=== PATIENT | male | born 1995 | race Caucasian/White ===

== ENCOUNTER 2024-01-25 14:15 | Emergency (ER) | payer SELFPAY ==
--- NOTE | 2024-01-25 14:17 | ED.ANXIETY ---
HPI - Anxiety General Chief Complaint: Anxiety Stated Complaint: Anxiety Meds Time Seen by Provider: 01/25/24 14:30 Mode of arrival: ambulatory Limitations: no limitations History of Present Illness HPI narrative: 28 year old male presents with concern for ADHD medication. He reports he is seeing a counselor they suggested he be seen here to be evaluated for psychiatric medication surgeon's ADHD. He denies thoughts of hurting himself or others. He reports ?intrusive thoughts?. Denies current anxiety MD complaint: other (request for ADHD medication) Related Data Home Medications Medication Instructions Recorded Confirmed No Home Medications 01/25/24 01/25/24 Allergies Allergy/AdvReac Type Severity Reaction Status Date / Time Penicillins Allergy Unknown Hives Verified 01/25/24 14:17 Review of Systems Review of Systems: CONSTITUTIONAL: Denies malaise, chills, sweats, or fever. NEUROLOGIC: Denies numbness, weakness, or headache. 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 There is no relevant family history pertinent to the presenting complaint Exam Narrative: GENERAL: Well-appearing, well-nourished, and in no acute distress. HEAD: Normocephalic, atraumatic. EYES: PERRLA, sclera clear, and EOMI ENT: Nares clear. Mucous membranes moist. NECK: Supple. CHEST: No respiratory distress. Speaks in full sentences. HEART: Regular rate and rhythm. SKIN: Warm, dry, no visible rash. NEURO: Alert and oriented x3. PSYCH: Normal mood and affect Course Course Emergency Course: Patient was given information for resources for primary care and for [facility]. Anticipatory guidance given. Patient agrees to follow-up as directed and is aware of reasons to seek care at the emergency department. Portions of this record may have been created with voice recognition software Level of Care: Express Care Visit Vital Signs Vital signs: Reviewed. MDM - Anxiety MDM Narrative Medical decision making narrative: I evaluated this patient in the express care. History is obtained from patient who is an independent historian and physical exam was performed.? Available medical records were reviewed. ? Exam findings and relevant testing show no acute concerns or changes; patient is non-toxic appearing and is in no distress. ? Patient is appropriate for outpatient treatment and follow-up. Critical Care Time Critical Care Time Critical Care Time: No Discharge Plan Discharge Clinical Impression: History of attention deficit disorder Patient Disposition: Home, Self-Care Condition: Stable Instructions: General Patient Instructions Additional Instructions: Please call to find resources on primary care and psychiatric care. If you have any urgent concerns, thoughts of hurting herself or others you should go to the emergency room. Prescriptions: No Action metformin 1,000 mg tablet 1,000 mg PO BID Qty: 180 3RF Rx Instructions: Please disregard previously sent script for the Metformin
[2024-01-25 14:23] VITALS: BP 134/74; PULSE 85; RESP 16; TEMP 37.3; O2SAT 98
== END 2024-01-25 14:45 | disposition home or self-care (01) ==
PROVIDERS: Emergency Provider Nurse Practitioner
DX: F90.9 Attention-deficit hyperactivity disorder, unspecified type (principal); E78.5 Hyperlipidemia, unspecified
CPT/HCPCS: 99211; G0463

== ENCOUNTER 2025-06-24 23:26 | Emergency (ER) | payer SELFPAY ==
--- NOTE | ~2025-06-24 | CT_ITS ---
EXAMINATION: CTA brain carotid DATE: 06/24/2025 23:52 INDICATION: Headache. Left facial pain. TECHNIQUE: Computed tomographic angiography (CTA) of the head was performed with 100 mL Omnipaque-350 intravenous contrast. CTA of the neck was performed with intravenous contrast. Automated exposure control and iterative reconstruction technique were employed. The dose-length product was 1186.64 mGy-cm. Maximum intensity projection and volume rendered 3D-reconstructions were created by the technologist on a separate workstation. COMPARISON: Head CT 06/24/2025 FINDINGS: HEAD CTA: There is no intracranial hemorrhage, acute infarction, or abnormal intracranial mass lesion. The ventricles are normal in size. There is mild mucosal thickening in the paranasal sinuses. The orbits are normal. The mastoid air cells are normal. The vertebral arteries are codominant. There is no significant stenosis of basilar artery or the posterior cerebral arteries. There is no significant stenosis of the intracranial internal carotid arteries or anterior or middle cerebral arteries. Anterior communicating artery is normal. The posterior communicating arteries are normal. There is no aneurysm. NECK CTA: There is mild bilateral high internal jugular chain lymphadenopathy, likely reactive. There is no significant stenosis of the vertebral arteries. There is no visible plaque in the proximal internal carotid arteries. There is 0% stenosis of the proximal right internal carotid artery relative to normal distal artery lumen diameter (NASCET criteria). There is 0% stenosis of the proximal left internal carotid artery relative to normal distal artery lumen diameter. There is mild cervical spondylosis. IMPRESSION: 1. Normal brain. 2. No aneurysm or significant intracranial arterial stenosis. 3. 0% stenosis of the proximal internal carotid arteries relative to normal distal artery lumen diameters (NASCET criteria). 4. Mild bilateral high internal jugular chain lymphadenopathy, likely reactive. Reviewed, dictated and finalized at location E. EE MAKER SERVICER IMPRESSION: 1. Normal brain. 2. No aneurysm or significant intracranial arterial stenosis. 3. 0% stenosis of the proximal internal carotid arteries relative to normal dis best artery lumen diameters (NASCET criteria). 4. Mild bilateral high internal jugular chain lymphadenopathy, likely reactive.
--- NOTE | ~2025-06-24 | CT_ITS ---
EXAMINATION: CT brain wo con DATE: 06/24/2025 23:52 INDICATION: Headache. Left-sided facial pain. TECHNIQUE: Computed tomography (CT) of the head was performed without intravenous contrast. The mA was adjusted according to patient size. Iterative reconstruction technique was employed. The dose-length product was 832.33 mGy-cm. COMPARISON: None FINDINGS: There is no intracranial hemorrhage, acute infarction, or abnormal intracranial mass lesion. The ventricles are normal in size. There is mild mucosal thickening in the paranasal sinuses. The mastoid air cells are normal. The orbits are normal. IMPRESSION: 1. Normal brain. Reviewed, dictated and finalized at location E. OPATHOLOGY TECHNICIAN IMPRESSION: 1. Normal brain.
--- NOTE | ~2025-06-24 | XR_ITS ---
Examination: XR chest 1V portable Clinical History: R/o CVA Comparison: None Technique: Portable AP Findings: Heart size upper limit of normal. Lungs clear. No acute bony abnormality. IMPRESSION: 1. No acute cardiopulmonary findings given portable technique. Reviewed, dictated and finalized at location R. TENDER
[2025-06-24 23:49] LABS: Estimated Glomerular Filt Rate > 60
[2025-06-24 23:55] VITALS: BP 138/83; PULSE 88; RESP 14; RESP 20; O2SAT 97; O2SAT 98
[2025-06-25] VITALS: BP 141/92; PULSE 83; RESP 18; O2SAT 96
[2025-06-25] MEDS: PROCHLORPERAZINE EDISYLATE 10 MG/2 ML VIAL IV PUSH
--- NOTE | 2025-06-25 | ECG_ITS ---
Test Date: 2025-06-25 01:21:11 Measurements Intervals [place] Rate: 85 P: 56 FL: 175 QRS: 17 QRSD: 104 T: 21 QT: 352 QTc: 419 Interpretive Statements SINUS RHYTHM INCOMPLETE RIGHT BUNDLE BRANCH BLOCK BORDERLINE ECG No previous ECG available for comparison Electronically Signed On 06-25-2025 07:51:10 CONSUMER SAFETY INSPECTOR by Wu Padilla D.O.
[2025-06-25] MEDS: SODIUM CHLORIDE 0.9% IV 1,000 ML 999 ML IV CONT (00:01)
[2025-06-25 00:17] LABS: Hematocrit 41.4 % (42.0-52.0); Hemoglobin 14.1 g/dL (14.0-18.0); Immature Granulocyte Percent A 0.4 % (0-0.5); Lymphocytes Absolute Auto 3.55 K/mm3 (0.9-3.2); Mean Corpuscular HGB Conc 34.1 g/dl (32-36); Mean Corpuscular Hemoglobin 29.8 pg (26-34); Mean Corpuscular Volume 87.5 fl (80-100); Nucleated Red Blood Cells Absolute Auto 0.000 K/mm3 (0.0-0.012); Nucleated Red Blood Cells Perc 0.0 % (0.0-0.2); Platelet Count Result 278 k/mm3 (150-375); Red Blood Count 4.73 M/mm3 (4.6-6.20); White Blood Count 11.3 K/mm3 (4.5-10.0)
--- NOTE | 2025-06-25 00:18 | ED_ITS ---
HPI - General Adult General Chief complaint: Unspecified Stated complaint: vision changes Time Seen by Provider: 06/24/25 23:37 History of Present Illness HPI narrative: Patient 30-year-old gentleman presents emergency department chief complaint of headache and left sided blurry vision. Patient reports that today started having headache reports that this he took some NyQuil and about 30 minutes later started having some blurry vision left eye patient reports that the med is doing better at this point is not 100% resolved. The patient reports that he has had no prior history migraines reports no weakness in arms or legs. The patient reports no change in speech. Related Data Allergies Allergy/AdvReac Type Severity Reaction Status Date / Time Penicillins Allergy Unknown Hives Verified 02/02/24 14:06 Review of Systems 2 Review of Systems: A 10 system review of systems was completed on the patient and is negative except for what is stated in the HPI. Nursing and ancillary documentation was reviewed. 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 Body mass index (BMI) 40.0-44.9, adult Encounter for preventive health examination FHx: type 2 diabetes mellitus Vitamin D deficiency Insulin resistance Insomnia OCD (obsessive compulsive disorder) History of attention deficit disorder Family History Family History Mother Diabetes mellitus Father Hypertension Social History Social History Smoking status: Never smoker Alcohol intake: never Substance use: never Substance use type: does not use Occupation/Education: occupation 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 HEAD: Normocephalic, atraumatic. EYES: PERRLA and EOMI. ENT: Nares clear, no rhinorrhea or epistaxis. Mucous membranes moist. NECK: Supple. CHEST: Clear to auscultation. No respiratory distress. HEART: Regular rate and rhythm. No murmur heard. Normal peripheral pulses. ABDOMEN: Soft, nontender, nondistended, normal active bowel sounds. EXTREMITIES: Normal range of motion. No edema. SKIN: Warm, dry, no rash. NEURO: No focal deficits. Alert and oriented x3. 5/5 strength in all extremities no paralysis no slurred speech PSYCH: Normal mood and affect. Course Vital Signs Vital signs: Vital Signs Pulse Rate 88 06/24/25 23:55 Respiratory Rate 20 06/24/25 23:55 Blood Pressure 138/83 06/24/25 23:55 Pulse Oximetry 98 06/24/25 23:55 Pulse Rate 90 06/25/25 01:32 Respiratory Rate 20 06/25/25 01:32 Blood Pressure 126/75 06/25/25 01:32 Pulse Oximetry 95 06/25/25 01:32 Medical Decision Making MDM Narrative Medical decision making narrative: Differential diagnosis includes complex migraine, CVA, large vessel occlusion, The patient due to his headache being onset of greater than 4 hours is not a thrombolytics candidate CT head which showed no acute abnormality CTA head and neck showed no acute findings no aneurysm no evidence of large vessel occlusion Laboratory studies were obtained that showed a white count of 11.3 electrolytes are within normal limits troponin was negative tox was negative The patient was given a migraine cocktail and symptoms have completely resolved Vital Signs Vital Signs: Vital Signs Pulse Rate 88 06/24/25 23:55 Respiratory Rate 20 06/24/25 23:55 Blood Pressure 138/83 06/24/25 23:55 Pulse Oximetry 98 06/24/25 23:55 Pulse Rate 90 06/25/25 01:32 Respiratory Rate 20 06/25/25 01:32 Blood Pressure 126/75 06/25/25 01:32 Pulse Oximetry 95 06/25/25 01:32 Lab Data 06/25/25 00:07 06/25/25 00:07 Labs: Lab Results 06/24/25 06/24/25 06/25/25 Range/Units 23:33 23:46 00:07 WBC 11.3 H (4.5-10.0) K/mm3 RBC 4.73 (4.6-6.20) M/mm3 Hgb 14.1 (14.0-18.0) g/dL Hct 41.4 L (42.0-52.0) % MCV 87.5 (80-100) fl MCH 29.8 (26-34) pg MCHC 34.1 (32-36) g/dl RDW 12.6 (11.5-14.5) % Plt Count 278 (150-375) k/mm3 MPV 9.8 (7.4-10.4) fl Immature Gran % (Auto) 0.4 (0-0.5) % Neut % (Auto) 56.4 (45.5-73.1) % Lymph % (Auto) 31.4 (18.3-44.2) % [place] % (Auto) 7.9 (2.6-8.5) % Eos % (Auto) 3.2 (0-4.4) % Baso % (Auto) 0.7 (0.2-1.2) % Lymph # (Auto) 3.55 H (0.9-3.2) K/mm3 [place] # (Auto) 0.9 H (0.1-0.6) K/mm3 Eos # (Auto) 0.4 H (0-0.3) K/mm3 Baso # (Auto) 0.1 (0.0-0.1) K/mm3 Abs Immat Gran (auto) 0.05 H (0.00-0.031) K/mm3 Absolute Neuts (auto) 6.4 (1.3-6.7) K/mm3 Absolute Nucleated RBC 0.000 (0.0-0.012) K/mm3 Nucleated RBC % 0.0 (0.0-0.2) % PT 14.2 (11.1-14.7) Seconds INR 1.1 APTT 27.9 (22.3-36.8) Seconds Sodium 138 (137-145) mmol/L Potassium 4.2 (3.4-5.0) mmol/L Chloride 105 (98-107) mmol/L Carbon Dioxide 29 (22-30) mmol/L Anion Gap 4 (4-12) mmol/L BUN 23 H (9-20) mg/dL Creatinine 1.10 0.87 (0.8-1.5) mg/dL Estim Creat Clear Calc Not Reportable 150 Estimated GFR > 60 > 60 (59 - ) Glucose 93 (65-110) mg/dL POC Capillary Glucose 102 (65-105) mg/dl Lactic Acid 1.0 (0.7-2.0) mmol/L Calcium 9.5 (8.4-10.2) mg/dL Magnesium Cancelled Total Bilirubin (0.2-1.3) mg/dL AST (17-59) U/L ALT (6-50) U/L Alkaline Phosphatase (38-126) U/L Troponin I (0.000-0.034) ng/mL Total Protein (6.3-8.2) g/dL Albumin (3.5-5.1) g/dL Lipase Urine Color (Yellow) Urine Appearance (Clear) Urine pH (5.0-9.0) Ur Specific [place] (1.001-1.035) Urine Protein (Negative) mg/dL Urine Glucose (UA) (Negative) mg/dL Urine Ketones (Negative) mg/dL Ur Blood (Man) (Negative) Urine Nitrate (Negative) Urine Bilirubin (Negative) Urine Urobilinogen (<2.0) mg/dL Leukocyte Esterase Rfl (Negative) GILBERT/UL Urine Opiates Screen (Negative) Urine Methadone Screen (Negative) Ur Barbiturates Screen (Negative) Ur Phencyclidine Scrn (Negative) Ur Amphetamine Screen (Negative) U Benzodiazepines Scrn (Negative) Urine Cocaine Screen (Negative) U Cannabinoids Screen (Negative) Ethyl Alcohol (<10) mg/dL 06/25/25 06/25/25 06/25/25 Range/Units 00:07 00:07 00:51 WBC (4.5-10.0) K/mm3 RBC (4.6-6.20) M/mm3 Hgb (14.0-18.0) g/dL Hct (42.0-52.0) % MCV (80-100) fl MCH (26-34) pg MCHC (32-36) g/dl RDW (11.5-14.5) % Plt Count (150-375) k/mm3 MPV (7.4-10.4) fl Immature Gran % (Auto) (0-0.5) % Neut % (Auto) (45.5-73.1) % Lymph % (Auto) (18.3-44.2) % [place] % (Auto) (2.6-8.5) % Eos % (Auto) (0-4.4) % Baso % (Auto) (0.2-1.2) % Lymph # (Auto) (0.9-3.2) K/mm3 [place] # (Auto) (0.1-0.6) K/mm3 Eos # (Auto) (0-0.3) K/mm3 Baso # (Auto) (0.0-0.1) K/mm3 Abs Immat Gran (auto) (0.00-0.031) K/mm3 Absolute Neuts (auto) (1.3-6.7) K/mm3 Absolute Nucleated RBC (0.0-0.012) K/mm3 Nucleated RBC % (0.0-0.2) % PT (11.1-14.7) Seconds INR APTT (22.3-36.8) Seconds Sodium (137-145) mmol/L Potassium (3.4-5.0) mmol/L Chloride (98-107) mmol/L Carbon Dioxide (22-30) mmol/L Anion Gap (4-12) mmol/L BUN (9-20) mg/dL Creatinine (0.8-1.5) mg/dL Estim Creat Clear Calc Estimated GFR (59 - ) Glucose (65-110) mg/dL POC Capillary Glucose (65-105) mg/dl Lactic Acid (0.7-2.0) mmol/L Calcium (8.4-10.2) mg/dL Magnesium 1.9 Total Bilirubin 0.3 (0.2-1.3) mg/dL AST 45 (17-59) U/L ALT 70 H (6-50) U/L Alkaline Phosphatase 74 (38-126) U/L Troponin I < 0.012 (0.000-0.034) ng/mL Total Protein 7.9 (6.3-8.2) g/dL Albumin 4.3 (3.5-5.1) g/dL Lipase Cancelled 115 Urine Color Yellow (Yellow) Urine Appearance Clear (Clear) Urine pH 5.5 (5.0-9.0) Ur Specific [place] 1.030 (1.001-1.035) Urine Protein Trace (Negative) mg/dL Urine Glucose (UA) Negative (Negative) mg/dL Urine Ketones Negative (Negative) mg/dL Ur Blood (Man) Negative (Negative) Urine Nitrate Negative (Negative) Urine Bilirubin Negative (Negative) Urine Urobilinogen 0.2 (<2.0) mg/dL Leukocyte Esterase Rfl Negative (Negative) GILBERT/UL Urine Opiates Screen Negative (Negative) Urine Methadone Screen Negative (Negative) Ur Barbiturates Screen Negative (Negative) Ur Phencyclidine Scrn Negative (Negative) Ur Amphetamine Screen Negative (Negative) U Benzodiazepines Scrn Negative (Negative) Urine Cocaine Screen Negative (Negative) U Cannabinoids Screen Negative (Negative) Ethyl Alcohol < 10 (<10) mg/dL Discharge Plan Discharge Clinical Impression: Ocular migraine Patient Disposition: Home Condition: Stable Instructions: Antibiotic Form, Migraine Headache (ED), Acute Headache (ED) Patient Language: Ethiopian Prescriptions: No Action sertraline 50 mg tablet 50 mg PO DAILY Qty: 30 0RF Rx Instructions: 1/2 tab nightly x4 nights then 1 nightly hydroxyzine HCl 25 mg tablet 25 mg PO TID PRN (Reason: anxiety and insomnia) Qty: 30 0RF Follow-up/Referrals: Jabier Santos MD [Physician, Family Practice] Maria Larios APRN [Advanced Practice Nurse, [facility]] Time of Disposition: 02:56
[2025-06-25 00:33] LABS: Alanine Aminotransferase 70 U/L (6-50); Albumin Level 4.3 g/dL (3.5-5.1); Alkaline Phosphatase 74 U/L (38-126); Anion Gap 4 mmol/L (4-12); Aspartate Amino Transferase 45 U/L (17-59); Bilirubin,Total 0.3 mg/dL (0.2-1.3); Blood Urea Nitrogen 23 mg/dL (9-20); Calcium 9.5 mg/dL (8.4-10.2); Carbon Dioxide 29 mmol/L (22-30); Chloride 105 mmol/L (98-107); Estimated CRCL calculation 150 ml/min; Estimated Glomerular Filt Rate > 60; Glucose 93 mg/dL (65-110); INR 1.1; Lipase 115 U/L (23-300); Magnesium 1.9 mg/dL (1.6-2.3); Potassium 4.2 mmol/L (3.4-5.0); Prothrombin Time 14.2 Seconds (11.1-14.7); Sodium 138 mmol/L (137-145); Total Protein 7.9 g/dL (6.3-8.2)
[2025-06-25 00:34] LABS: Partial Thromboplastin Time 27.9 Seconds (22.3-36.8)
[2025-06-25 00:39] LABS: Troponin I < 0.012 ng/mL (0.000-0.034)
--- OUTSIDE RECORDS SUMMARY | 2025-06-25 01:08 | XMS_ITS | Patient Health Record ---
Author Organization [facility] [employer] Address [address] [facility] [address] [place] [address] Care Team Providers Care Hydrator Name Role Phone Livier Sophia Unavailable [phone] Reason For Referral No Information Medications Medication SIG (Take, Route, Frequency, Duration) Notes Start Date End Date Status Sertraline HCl 100 MG Tablet Oral Active Sertraline HCl 50 MG Tablet Oral Active Plan Of Treatment No Information
[2025-06-25 01:15] LABS: Cannabinoid Screen Urine Negative (Negative)
[2025-06-25 01:32] VITALS: BP 126/75; PULSE 90; RESP 20; O2SAT 95
[2025-06-25 01:41] LABS: Appearance Urine Clear (Clear); Glucose Urine UA Negative (Negative); Leukocyte Esterase Ur Negative LEU/UL (Negative); Nitrate Urine Negative (Negative)
[2025-06-25 01:42] LABS: Specific Grav Ur 1.030 (1.001-1.035)
[2025-06-25 01:50] LABS: Add Urine Microscopic? NO
== END 2025-06-25 03:06 | disposition home or self-care (01) ==
PROVIDERS: Emergency Provider Emergency Medicine
DX: G43.809 Other migraine, not intractable, without status migrainosus (principal); E78.5 Hyperlipidemia, unspecified; E55.9 Vitamin D deficiency, unspecified; F42.9 Obsessive-compulsive disorder, unspecified
CPT/HCPCS: 36415; 70450; 70496; 70498; 71045; 80053; 80307; 81001; 81003; 82077; 82948; 83605; 83690; 83735; 84484; 85025; 85610; 85730; 93005; 96361; 96374; 96375; 99284; J0780; J1200; J7030; Q9967